=== PATIENT | female | born 1980 | race Caucasian/White ===

== ENCOUNTER 2018-08-09 00:27 | Emergency (ER) | payer SELFPAY ==
[2018-08-09 00:32] VITALS: BP 129/85
--- NOTE | 2018-08-09 01:03 | RADIOLOGY REPORT (SQ) ---
3 VIEWS OF THE LEFT SHOULDER HISTORY: Joint pain. COMPARISON: None. FINDINGS: No acute fracture is seen. The joint spaces are preserved. The soft tissues are unremarkable. IMPRESSION: No acute fracture or dislocation.
--- NOTE | 2018-08-09 01:27 | ER Document Report ---
ED Extremity Problem, Upper - General Chief Complaint: Shoulder Injury Stated Complaint: SHOULDER INJURY Time Seen by Provider: 08/09/18 01:20 Primary Care Provider: MIKAYLA ROMAN MD [ACTIVE STAFF] - Follow up tomorrow Notes: Patient is a 37-year-old female that comes to the emergency department for chief complaint of left shoulder dislocation. She states that she was leading her horse around, the horse bolted and the rope pulled hard on her shoulder, she states it looked dislocated, her came up to her, lifted her elbow while putting pressure on her shoulder and they felt a pop, they believe they put her shoulder back in. She reports pain to the area generally. She did fall to the ground but she denies head injury, she denies any other locations of pain. She has not on a blood thinner, she denies alcohol use today. TRAVEL OUTSIDE OF THE [place] IN LAST 30 DAYS: No - Related Data Allergies/Adverse Reactions: cefaclor [From Ceclor] Allergy (Verified 08/09/18 00:32) sulfamethoxazole [From Bactrim] Allergy (Verified 08/09/18 00:32) trimethoprim [From Bactrim] Allergy (Verified 08/09/18 00:32) Past Medical History - General Information source: Patient, Relative - Social History Smoking Status: Current Every Day Smoker Chew tobacco use (# tins/day): No Frequency of alcohol use: None Drug Abuse: None Lives with: Family Family History: Reviewed & Not Pertinent Patient has suicidal ideation: No Patient has homicidal ideation: No - Medical History Medical History: Negative Renal/ Medical History: Denies: Hx Peritoneal Dialysis - Immunizations Immunizations up to date: Yes Hx Diphtheria, Pertussis, Tetanus Vaccination: Yes Review of Systems - Review of Systems Constitutional: No symptoms reported EENT: No symptoms reported Cardiovascular: No symptoms reported Respiratory: No symptoms reported Gastrointestinal: No symptoms reported Genitourinary: No symptoms reported Female Genitourinary: No symptoms reported Musculoskeletal: See HPI Skin: No symptoms reported Hematologic/Lymphatic: No symptoms reported Neurological/Psychological: No symptoms reported Physical Exam - Vital signs Vitals: Temp Pulse Resp BP Pulse Ox 98.6 F 97 18 129/85 H 98 08/09/18 00:32 08/09/18 00:32 08/09/18 00:32 08/09/18 00:32 08/09/18 00:32 - Notes Notes: GENERAL: Alert, interacts well. Mildly uncomfortable. HEAD: Normocephalic, atraumatic. EYES: Pupils equal, round, and reactive to light. Extraocular movements intact. ENT: Oral mucosa moist, tongue midline. Oropharynx unremarkable. Airway patent. Nares patent, no nasal septal hematoma, TM's intact. NECK: Full range of motion. Supple. Trachea midline. LUNGS: Clear to auscultation bilaterally, no wheezes, rales, or rhonchi. No respiratory distress. HEART: Regular rate and rhythm. No murmur ABDOMEN: Soft, non-tender. Non-distended. Bowel sounds present in all 4 quadrants. GENITOURINARY: Deferred EXTREMITIES: Pain over the left shoulder area generally, patient unwilling to move this. However she has good drapery hanger, good distal neurovascular exam, good radial pulse, she has no swelling, normal coloration. No signs of trauma. Remaining extremity exam is unremarkable. BACK: no cervical, thoracic, lumbar midline tenderness. No saddle anesthesia, normal distal neurovascular exam. NEUROLOGICAL: Alert and oriented x3. Normal speech. [cranial nerves II through XII grossly intact]. PSYCH: Normal affect, normal mood. SKIN: Warm, dry, normal turgor. No rashes or lesions noted. Course - Re-evaluation Re-evalutation: Shoulder appears to be relocated on my evaluation. There is no significant swelling, no signs of trauma, there is no signs of compartment syndrome, unremarkable upper extremity exam except for pain in the general shoulder area and patient being unwilling to move the shoulder. X-ray unremarkable. Appears relocated, no signs of fracture. Based on description by patient and significant other I do believe patient dislocated shoulder and this was reduced. Patient placed in shoulder immobilizer, provided with medications, orthopedic referral. Discussed importance of follow-up, discussed return precautions. They state understanding and agreement. - Vital Signs Vital signs: Temp Pulse Resp BP Pulse Ox 98.6 F 97 18 129/85 H 98 08/09/18 00:32 08/09/18 00:32 08/09/18 00:32 08/09/18 00:32 08/09/18 00:32 Discharge - Discharge Clinical Impression: Dislocation of left shoulder joint Qualifiers: Encounter type: initial encounter Qualified Code(s): S43.005A - Unspecified dislocation of left shoulder joint, initial encounter Condition: Stable Disposition: HOME, SELF-CARE Instructions: Oral Narcotic Medication ([facility]) Additional Instructions: No fracture is seen on the x-ray and you did successfully relocate the shoulder into the joint. Wear the shoulder immobilizer, call orthopedics referral tomorrow to establish close follow-up, take the anti-inflammatory as prescribed, take the muscle relaxer especially at night as prescribed. Return to the emergency department for any concerning or worsening symptoms including severe swelling or pain. Prescriptions: Cyclobenzaprine HCl [Flexeril 5 mg Tablet] 1 - 2 tab PO TID PRN #20 tablet PRN Reason: Naproxen 500 mg PO BID PRN #20 tablet PRN Reason: Referrals: MIKAYLA ROMAN MD [ACTIVE STAFF] - Follow up tomorrow
[2018-08-09] MEDS ORDERED: OXYCODONE-ACETAMINOPHEN 5-325 MG TABLET PO ONE (01:35)
[2018-08-09] MEDS ORDERED: PROMETHAZINE HCL 25 MG TABLET PO ONE (01:35)
[2018-08-09] MEDS ORDERED: HYDROCODONE/ACETAMINOPHEN 5-325 MG (6 TAB/ER DISP) PO PRN (02:16)
== END 2018-08-09 02:15 | disposition home or self-care (01) ==
LOC: ER 00:27
DX: S43.005A Unspecified dislocation of left shoulder joint, initial encounter (principal); X50.0XXA Overexertion from strenuous movement or load, initial encounter; Y93.K9 Activity, other involving animal care; Y92.009 Unspecified place in unspecified non-institutional (private) residence as the place of occurrence of the external cause; F17.200 Nicotine dependence, unspecified, uncomplicated; Z88.1 Allergy status to other antibiotic agents
CPT/HCPCS: 99283; 73030; L3650

== ENCOUNTER 2018-09-27 16:43 | Emergency (ER) | payer BC ==
[2018-09-27] MEDS ORDERED: KETOROLAC TROMETHAMINE 60 MG/2 ML SDV IM ONE (19:06)
[2018-09-27] MEDS ORDERED: LIDOCAINE 5% (700 MG) TRANSDERMAL ADH..PATCH TP ONE (19:06)
--- NOTE | 2018-09-27 19:17 | ER Document Report ---
HPI - HPI Time Seen by Provider: 09/27/18 19:06 Pain Level: 4 Notes: Patient is a 38-year-old female who presents the emergency department after falling onto her buttocks a few hours prior to arrival. Patient reports pain at the coccyx. Patient is able to ambulate with a steady gait. Denies any loss of bowel or bladder, denies any bladder retention, denies any saddle anesthesia. - REPRODUCTIVE Reproductive: DENIES: : - MUSCULOSKELETAL Musculoskeletal: REPORTS: Extremity pain - tailbone Past Medical History - General Information source: Patient - Social History Smoking Status: Current Every Day Smoker Frequency of alcohol use: None Lives with: Alone Family History: Reviewed & Not Pertinent Patient has suicidal ideation: No Patient has homicidal ideation: No - Medical History Medical History: Negative Renal/ Medical History: Denies: Hx Peritoneal Dialysis Surgical Hx: Negative - Immunizations Immunizations up to date: Yes Hx Diphtheria, Pertussis, Tetanus Vaccination: Yes Vertical Provider Document - CONSTITUTIONAL Notes: PHYSICAL EXAMINATION: GENERAL: Well-appearing, well-nourished and in no acute distress. HEAD: Atraumatic, normocephalic. EYES: Pupils equal round extraocular movements intact, conjunctiva are normal. ENT: Nares patent NECK: Normal range of motion LUNGS: No respiratory distress Musculoskeletal: Normal range of motion, tenderness to palpation over lumbar spine as well as coccyx area. Small abrasion noted. No step-off or deformity noted. NEUROLOGICAL: Normal speech, normal gait. PSYCH: Normal mood, normal affect. SKIN: Warm, Dry, normal turgor, no rashes or lesions noted. - INFECTION CONTROL TRAVEL OUTSIDE OF THE [place] IN LAST 30 DAYS: No Course - Re-evaluation Re-evalutation: X-rays negative for any acute fracture or dislocation. Patient will be given prescription for Toradol, Lidoderm patches and discharged home in stable condition. - Vital Signs Vital signs: Temp Pulse Resp BP Pulse Ox 98.2 F 87 16 91/61 L 98 09/27/18 16:52 09/27/18 16:52 09/27/18 16:52 09/27/18 16:52 09/27/18 16:52 Discharge - Discharge Clinical Impression: Low back pain Qualifiers: Chronicity: acute Back pain laterality: midline Sciatica presence: without sciatica Qualified Code(s): M54.5 - Low back pain Condition: Stable Disposition: HOME, SELF-CARE Additional Instructions: You have been seen in the Emergency Department (ED) today for back pain. Your workup and exam have not shown any acute abnormalities and you are likely suffering from a contusion, but there is no treatment that will fix your symptoms at this time. Please take medications as directed. You should also purchase a local lidocaine cream such as "aspercreme with lidocaine" and use per bottle instructions to the affected area when the lidocaine patch is not on. Apply heat to the area as often as you are able. Continue to keep active and avoid prolonged periods of bed rest. Please follow up with your doctor as soon as possible regarding today's ED visit and your back pain. Return to the ED for worsening back pain, fever, weakness or numbness of either leg, or if you develop either (1) an inability to urinate or have bowel movements, or (2) loss of your ability to control your bathroom functions (if you start having "accidents"), or if you develop other new symptoms that concern you.concern you. Prescriptions: Ketorolac Tromethamine [Toradol 10 mg Tablet] 10 mg PO Q6HP PRN #20 tablet PRN Reason: Lidocaine [Lidoderm 5% (700 mg) Transdermal Patch] 1 patch TP DAILY #30 adh..patch Forms: Return to Work
--- NOTE | 2018-09-27 20:03 | RADIOLOGY REPORT (SQ) ---
EXAM DESCRIPTION: L SPINE WHOLE COMPLETED DATE/TIME: 09/27/2018 7:19 pm REASON FOR STUDY: fall, low back pain and coccyx pain COMPARISON: None. NUMBER OF VIEWS: Five views including obliques. TECHNIQUE: AP, lateral, oblique, and sacral radiographic images acquired of the lumbar spine. LIMITATIONS: None. FINDINGS: MINERALIZATION: Normal. 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 This will be labe led T12 for counting purposes ALIGNMENT: Normal. VERTEBRAE: Maintained height. No fracture or worrisome bone lesion. DISCS: Preserved height. No significant osteophytes or end plate irregularity. POSTERIOR ELEMENTS: Pedicles and facets are intact. No pars defect or posterior arch defects. Mild lumbar facet arthropathy at L4-5 and L5-S1 HARDWARE: None in the spine. PARASPINAL SOFT TISSUES: Normal. PELVIS: Intact as visualized. No fractures or worrisome bone lesions. SI joints intact. OTHER: No other significant finding. IMPRESSION: Mild lower lumbar facet arthropathy TECHNICAL DOCUMENTATION: JOB ID: [id number] [email or web address] All Rights Reserved Reading location - IP/workstation name: [email or web address]
[2018-09-27 20:17] VITALS: BP 105/77
== END 2018-09-27 20:17 | disposition home or self-care (01) ==
LOC: ER 16:43
DX: M54.5 Low back pain (principal)
CPT/HCPCS: 99283; 96372; 72110; J1885